=== PATIENT | male | born 1985 | race Caucasian/White ===

== ENCOUNTER 2024-04-13 17:02 | Emergency (ER) | payer OTHER, SELFPAY ==
[2024-04-13 17:06] VITALS: BP 123/77; PULSE 64; RESP 20; TEMP 36.6; O2SAT 99; BMI 21.4
--- NOTE | 2024-04-13 17:16 | ED.MALEGU ---
HPI - Male Genitourinary General Time Seen by Provider: 17:16 Date Seen: 04/13/24 Chief complaint: Urogenital Problems, Male Stated complaint: penile fracture Time Seen by Provider: 04/13/24 17:07 Source: patient and RN notes reviewed Mode of arrival: ambulatory Limitations: no limitations History of Present Illness HPI Narrative: This 38yo male is coming into the ED with concern of a penile fracture. He was going to have sex and hit the edge of the bed with his erect penis. He immediately heard a snap, felt pop sensation. He really isn't having a lot of pain, more sense of discomfort. He last urinated a couple of hours ago, doesn't feel need to go yet. Has not noted any urethral blood. He does believe that his penis bent when this happened. Related Data Sexually active: Yes Allergies Allergy/AdvReac Type Severity Reaction Status Date / Time No Known Drug Allergies Allergy Verified 04/13/24 17:05 Review of Systems Narrative: As per HPI. PFSH PFSH Social History Smoking Status: Current every day smoker Do you use any of these nicotine containing products: E-Cigarettes How often do you have a drink containing alcohol: 2-4 times a month AUDIT-C Alcohol total score: 2 Non-prescribed substance use: marijuana (any form) Exam Const: Vital Signs, click to edit/add: Vital Signs - 24 hr 04/13/24 17:06 Temperature 97.9 F Pulse Rate [Pulse Oximeter] 64 Respiratory Rate 20 Blood Pressure [Ri ght Upper Arm] 123/77 Pulse Oximetry 99 Oxygen Delivery Me thod Room Air Patient ambulatory into the ED of his own accord. He is seen in room 2, is alert, interactive, no apparent distress. Abdomen is soft, nontender, no distension. Base of the penis in the proximal penile shaft looks quite swollen. He I do not denote any definite bruising at this time. The shaft more approximately is definitely more swollen and distally the shaft tapers down, glans appears normal. Note no drainage or bleeding from the glans. Testes are descended bilaterally, normal examination. He really does not have any significant pain with movement or examination of the penis. Documenting provider has reviewed patient's vital signs: yes Course Course ED Course: Will talk to Urology. I have talked to her assistant production manager that is here, she has never done ultrasound to assess for penile fracture. I do not have MRI capacity here at this time either. Reevaluation(s) Time of Reevaluation #1: 18:09 Reevaluation #1: Reviewed with patient that we are waiting to talk to Urology, we will repeat page them. He really only feels discomfort if something touches the penis, otherwise is not having that much pain. Re-evaluation notes no increased swelling of the penile shaft. Will have nursing staff see if we can collected urinalysis, make sure that he can urinate while we await to talk to Urology. Time of Reevaluation #2: 18:48 Reevaluation #2: We still have not heard back from Urology through [facility]. Did contact [facility], they state this needs to go to the OR and they did except. Dr. Hudson was initially contacted at 6:40 p.m., she called back at 6:43 p.m. with acceptance from Urology. He will be NPO, he is able to go via personal vehicle, did not require anything for pain management. Patient is aware to go up to [facility] immediately. Vital Signs Vital signs: Initial Vital Signs Temperature 97.9 F 04/13/24 17:06 Temperature Source Temporal Artery Scan 04/13/24 17:06 Pulse Rate 64 04/13/24 17:06 Respiratory Rate 20 04/13/24 17:06 Blood Pressure 123/77 04/13/24 17:06 Blood Pressure Mean 92 04/13/24 17:06 Blood Pressure Position High-Fowlers 04/13/24 17:06 Pulse Oximetry 99 04/13/24 17:06 Oxygen Delivery Method Room Air 04/13/24 17:06 Vital Signs Temperature 97.9 F 04/13/24 17:06 Pulse Rate 64 04/13/24 17:06 Respiratory Rate 20 04/13/24 17:06 Blood Pressure 123/77 04/13/24 17:06 Pulse Oximetry 99 04/13/24 17:06 Oxygen Delivery Method Room Air 04/13/24 17:06 Temperature 97.9 F 04/13/24 17:06 Pulse Rate 64 04/13/24 17:06 Respiratory Rate 20 04/13/24 17:06 Blood Pressure 123/77 04/13/24 17:06 Pulse Oximetry 99 04/13/24 17:06 Oxygen Delivery Method Room Air 04/13/24 17:06 MDM - Male Genitourinary Lab Data Labs: Lab Results 04/13/24 Range/Units 18:18 Urine Color Yellow (Yellow) Urine Appearance Clear (Clear) Urine pH 7.0 (5.0-8.5) Ur Specific [place] 1.010 (1.000-1.030) Urine Protein Negative (Negative) Urine Glucose (UA) Negative (Negative) Urine Ketones Negative (Negative) Urine Blood Negative (Negative) Urine Nitrite Negative (Negative) Urine Bilirubin Negative (Negative) Urine Urobilinogen 0.2 (0.2-1.0) Ur Leukocyte Esterase Negative (Negative) Discharge Plan Discharge Clinical Impression: Penile fracture Qualifiers: Encounter type: initial encounter Qualified Code(s): S39.840A - Fracture of corpus cavernosum penis, initial encounter Patient Disposition: [facility] Discharge Location: [facility] [place] Follow Up/Referrals: Provider,Not a Local [Primary Care Provider] -
[2024-04-13 18:39] LABS: Appearance Urine Clear (Clear); Bilirubin Urine Negative (Negative); Blood Urine Negative (Negative); Color Urine Yellow (Yellow); Glucose Urine Negative (Negative); Ketones Urine Negative (Negative); Leukocyte Esterase Urine Negative (Negative); Nitrite Urine Negative (Negative); Protein Urine Negative (Negative); Urobilinogen Urine 0.2 (0.2-1.0)
[2024-04-13 18:54] LABS: RBC Urine 0-2 (0-2); WBC Urine 0-2 (0-5)
[2024-04-13 19:00] VITALS: BP 100/83; PULSE 77; RESP 20; TEMP 36.7; O2SAT 100
--- NOTE | 2024-04-13 20:35 | ED.NURSE ---
nurse to nurse report to [facility] metcalf.
== END 2024-04-13 19:04 | disposition short-term general hospital (02) ==
PROVIDERS: Emergency Provider Family Medicine
DX: S39.840A Fracture of corpus cavernosum penis, initial encounter (principal); W22.8XXA Striking against or struck by other objects, initial encounter
CPT/HCPCS: 81001; 99283; 99284